=== PATIENT | male | born 1965 | race American Indian/Alaskan Native ===

== ENCOUNTER 2017-09-16 16:13 | Emergency (ER) | payer OTHER ==
[2017-09-16 16:57] LABS: Basophils % (Auto) 0.5 % (0.0-1.8); Eosinophils % (Auto) 0.8 % (0.0-4.3); Hematocrit 34.3 % (35.5-45.6); Hemoglobin 12.1 gm/dl (11.8-15.2); Mean Corpuscular HGB Conc 35 % (32-34); Mean Corpuscular Hemoglobin 30 pg (28-32); Mean Corpuscular Volume 85 fl (84-94); Platelet Count 167 K/mm3 (140-440); Red Blood Count 4.04 M/mm3 (3.65-5.03); Red Cell Distribution Width 14.6 % (13.2-15.2); White Blood Count 4.3 K/mm3 (4.5-11.0)
[2017-09-16 17:17] LABS: Alanine Aminotransferase 9 units/L (7-56); Albumin 3.8 g/dL (3.9-5); Albumin/Globulin Ratio 1.4 %; Alkaline Phosphatase 55 units/L (35-129); Anion Gap 17 mmol/L; BUN/Creatinine Ratio 9; Blood Urea Nitrogen 8 mg/dL (9-20); Calcium 8.4 mg/dL (8.4-10.2); Carbon Dioxide 24 mmol/L (22-30); Chloride 99.9 mmol/L (98-107); Glucose 132 mg/dL (75-100); Lipase 32 units/L (13-60); Potassium 4.1 mmol/L (3.6-5.0); Sodium 137 mmol/L (137-145); Total Protein 6.6 g/dL (6.3-8.2)
--- NOTE | 2017-09-16 17:48 | Emergency Department Report ---
Chief Complaint: Abdominal Pain Stated Complaint: ABDOMINAL PAIN Time Seen by Provider: 09/16/17 16:25 - HPI History of Present Illness: Patient reports that he woke up this morning sick. He reports he is having nausea vomiting and diarrhea. Patient states that he has been weak, with abdominal cramping to upper abdomen. Pain is 10 out of 10 in feel crampy. Patient says that he drinks whiskey once time a week and it shot mixed with Sprite. It's in triage nurses note that patient said he drank a lot of whiskey 3-4 times a week but patient denies this. Patient has a history of seizure but he said he had one time and he is not on any medication. Denies any urinary frequency urgency or burning. Denies any fever or chills. Denies any blood in his stool. Patient said he has diarrhea 5 today. He vomited once today. - ROS Review of Systems: All systems are negative unless stated in HPI above - Exam Vital Signs: Vital Signs 09/16/17 16:30 Temperature 98.5 F Pulse Rate 73 Respiratory 18 Rate Blood Pressure 82/49 O2 Sat by Pulse 100 Oximetry Physical Exam: Gen.: Is a 51-year-old male that looks frail and thick. Abdomen: Mild tenderness to upper abdomen with no guarding or rebound. No distention or rigidity. Positive bowel sounds in all quadrants. CV: Blood pressure is 82/49. S1, S2. Regular rate rhythm negative murmur MSE screening note: Focused history and physical exam performed. Due to findings the following was ordered: ED Medical Decision Making - Lab Data Result diagrams: 09/16/17 16:45 09/16/17 16:45 - Medical Decision Making MDM: Patient screened by provider in triage area. Appropriate protocol initiated and patient to be seen in main ED by ED Disposition for MSE Condition: Stable
[2017-09-16] MEDS ORDERED: NACL 0.9% 1000 ML 1,000 ML IV ONE (18:44)
[2017-09-16] MEDS ORDERED: ZOFRAN IV ONE (18:44)
[2017-09-16] MEDS ORDERED: BENTYL IM ONE (19:12)
--- NOTE | 2017-09-16 19:12 | Emergency Department Report ---
ED N/V/D HPI - General Chief complaint: Abdominal Pain Stated complaint: ABDOMINAL PAIN Time Seen by Provider: 09/16/17 16:25 Source: patient Mode of arrival: Ambulatory Limitations: No Limitations - History of Present Illness Initial comments: 51-year-old male with past medical history seizures presents to the hospital with complaints of abdominal pain and started a 3:45 AM here patient has had onset of generalized cramping abdominal pain that was intermittent and a rate of 10/10 in intensity at its worst. Pain has gradually decreased without intervention. Positive nausea with one episode of vomiting. 3-4 episodes of loose stools reported. Patient denies melena, hematochezia, hematemesis, fever , or dysuria. Patient drinks whiskey approximately 1 time per week. Denies daily alcohol use, fevers, recent travel, recent antibiotic use, previous surgery, or sick contacts. PMD: None - Related Data Previous Rx's Medication Instructions Recorded Last Taken Type Loperamide [Imodium] 2 mg PO Q2HR PRN #20 capsule 09/16/17 Unknown Rx Ondansetron [Zofran Odt] 4 mg PO Q8HR PRN #20 tab.rapdis 09/16/17 Unknown Rx Allergies Allergy/AdvReac Type Severity Reaction Status Date / Time No Known Allergies Allergy Unverified 09/16/17 16:34 ED Review of Systems ROS: Stated complaint: ABDOMINAL PAIN Other details as noted in HPI Comment: All other systems reviewed and negative Other: Constitutional: No fevers chills Eyes: No eye pain visual changes ENT: No ear pain or throat pain Neck: Denies pain Respiratory: Denies cough wheezing shortness of breath Cardiovascular: Denies chest pain, palpitations, syncope GI: As per HPI : Denies dysuria Musculoskeletal: Denies back pain, joint swelling Skin: Denies rash, lesions, erythema Neurologic: Denies headache, numbness, weakness Psychiatric: Denies suicidal ideation, hallucinations ED Past Medical Hx - Past Medical History Hx Seizures: Yes - Surgical History Past Surgical History?: No - Social History Smoking Status: Light Tobacco Smoker Substance Use Type: Alcohol - Medications Home Medications: Home Medications Medication Instructions Recorded Confirmed Last Taken Type Loperamide [Imodium] 2 mg PO Q2HR PRN #20 capsule 09/16/17 Unknown Rx Ondansetron [Zofran Odt] 4 mg PO Q8HR PRN #20 tab.rapdis 12/05/17 Unknown Rx ED Physical Exam - General Limitations: No Limitations - Other Other exam information: General: No limitations, patient is alert in no acute distress Head exam: Atraumatic, normocephalic Eyes exam: Normal appearance, nonicteric sclera ENT: Moist mucous membrane, normal oropharynx Neck exam: Normal inspection, full range of motion, no meningismus nontender Respiratory exam: Clear to auscultation bilateral, no wheezes, rales, crackles Cardiovascular: Normal rate and rhythm, normal heart sounds Abdomen: Soft, nondistended, and nontender, with normal bowel sounds, no rebound, or guarding Extremity: Full range of motion normal inspection no deformity Back: Normal Inspection, full range of motion, no tenderness Neurologic: Alert, oriented x3, cranial nerves intact, no motor or sensory deficit Psychiatric: normal affect, normal mood Skin: Warm, dry, intact ED Course Vital Signs 09/16/17 09/16/17 09/16/17 16:30 19:21 19:30 Temperature 98.5 F Pulse Rate 73 Respiratory 18 Rate Blood Pressure 82/49 96/49 Blood Pressure [Right] O2 Sat by Pulse 100 99 98 Oximetry 09/16/17 09/16/17 09/16/17 19:45 20:00 20:15 Temperature Pulse Rate Respiratory Rate Blood Pressure 97/59 98/65 98/65 Blood Pressure [Right] O2 Sat by Pulse 95 98 99 Oximetry 09/16/17 09/16/17 20:30 21:54 Temperature Pulse Rate 65 Respiratory 18 Rate Blood Pressure 102/69 Blood Pressure 102/69 [Right] O2 Sat by Pulse 99 99 Oximetry - Reevaluation(s) Reevaluation #1: 09/16/17 19:11 1 L normal saline, Zofran ordered. UA pending ED Medical Decision Making - Lab Data Result diagrams: 09/16/17 16:45 09/16/17 16:45 Lab Results 09/16/17 09/16/17 09/16/17 Range/Units 16:45 16:45 19:20 WBC 4.3 L (4.5-11.0) K/mm3 RBC 4.04 (3.65-5.03) M/mm3 Hgb 12.1 (11.8-15.2) gm/dl Hct 34.3 L (35.5-45.6) % MCV 85 (84-94) fl MCH 30 (28-32) pg MCHC 35 H (32-34) % RDW 14.6 (13.2-15.2) % Plt Count 167 (140-440) K/mm3 Lymph % (Auto) 34.6 (13.4-35.0) % Crisp % (Auto) 11.3 H (0.0-7.3) % Eos % (Auto) 0.8 (0.0-4.3) % Baso % (Auto) 0.5 (0.0-1.8) % Lymph # 1.5 (1.2-5.4) K/mm3 Crisp # 0.5 (0.0-0.8) K/mm3 Eos # 0.0 (0.0-0.4) K/mm3 Baso # 0.0 (0.0-0.1) K/mm3 Seg Neutrophils % 52.8 (40.0-70.0) % Seg Neutrophils # 2.3 (1.8-7.7) K/mm3 Sodium 137 (137-145) mmol/L Potassium 4.1 (3.6-5.0) mmol/L Chloride 99.9 (98-107) mmol/L Carbon Dioxide 24 (22-30) mmol/L Anion Gap 17 mmol/L BUN 8 L (9-20) mg/dL Creatinine 0.9 (0.8-1.5) mg/dL Estimated GFR > 60 ml/min BUN/Creatinine Ratio 9 % Glucose 132 H (75-100) mg/dL Calcium 8.4 (8.4-10.2) mg/dL Total Bilirubin 0.70 (0.1-1.2) mg/dL AST 23 (5-40) units/L ALT 9 (7-56) units/L Alkaline Phosphatase 55 (35-129) units/L Total Protein 6.6 (6.3-8.2) g/dL Albumin 3.8 L (3.9-5) g/dL Albumin/Globulin Ratio 1.4 % Lipase 32 (13-60) units/L Urine Color Yellow (Yellow) Urine Turbidity Clear (Clear) Urine pH 6.0 (5.0-7.0) Ur Specific Blessing 1.012 (1.003-1.030) Urine Protein <15 mg/dl (Negative) mg/dL Urine Glucose (UA) Neg (Negative) mg/dL Urine Ketones Neg (Negative) mg/dL Urine Blood Sm (Negative) Urine Nitrite Neg (Negative) Urine Bilirubin Neg (Negative) Urine Urobilinogen < 2.0 (<2.0) mg/dL Ur Leukocyte Esterase Neg (Negative) Urine WBC (Auto) < 1.0 (0.0-6.0) /HPF Urine RBC (Auto) 1.0 (0.0-6.0) /HPF Urine Mucus Few /HPF - Medical Decision Making Patient feels and better any ED with treatment. No further vomiting or pain reported. Be discharged home with treatment for acute gastroenteritis - Differential Diagnosis gastritis, gastroenteritis, pancreatitis, hepatitis, appendicitis, cholecys Critical Care Time: No Critical care attestation.: If time is entered above; I have spent that time in minutes in the direct care of this critically ill patient, excluding procedure time. ED Disposition Clinical Impression: Gastroenteritis, Acute gastroenteritis Disposition: TO HOME OR SELFCARE Is pt being admited?: No Does the pt Need Aspirin: No Condition: Stable Instructions: Gastroenteritis (ED) Additional Instructions: Take the medications as prescribed. Return if symptoms worsen as indicated by a discharge instruction. Take Tylenol or Motrin as needed for pain Prescriptions: Loperamide [Imodium] 2 mg PO Q2HR PRN #20 capsule PRN Reason: Diarrhea Ondansetron [Zofran Odt] 4 mg PO Q8HR PRN #20 tab.rapdis PRN Reason: Pain Referrals: [facility] [Provider Group] - 3-5 Days (Primary care clinic) JEREMIAS BINGHAM MD [Referring] - 3-5 Days (Primary care physician ) Time of Disposition: 22:35
[2017-09-16 20:07] LABS: Bilirubin,Urine NEG (Negative); Blood,Urine SM (Negative); Ketones,Urine NEG (Negative); Leukocyte Esterase,Urine NEG (Negative); Mucus,Urine FEW /HPF; Nitrite,Urine NEG (Negative); Protein,Urine <15 mg/dL mg/dL (Negative); Urobilinogen,Urine < 2.0 mg/dL (<2.0)
[2017-09-16 20:08] LABS: WBC,Urine < 1.0 /HPF (0.0-6.0)
[2017-09-16 20:39] VITALS: BP 102/69
== END 2017-09-16 22:56 | disposition home or self-care (01) ==
LOC: ED 16:13
DX: K52.9 Noninfective gastroenteritis and colitis, unspecified (principal); F17.200 Nicotine dependence, unspecified, uncomplicated
CPT/HCPCS: 36415; 80053; 81001; 83690; 85025; 96361; 96372; 96374; 99283; J0500; J2405; J7030